=== PATIENT | male | born 1965 ===

== ENCOUNTER 2016-08-06 20:22 | Emergency (ER) | payer OTHER ==
[2016-08-06 20:49] VITALS: PULSE 66; RESP 16; TEMP 98.2; O2SAT 93
[2016-08-06 21:35] VITALS: BP 151/96
[2016-08-06] MEDS ORDERED: HYDROCOD/APAP 5/325 PREPACK#6 BTL TAKEHOME ONE (21:35)
[2016-08-06] MEDS ORDERED: IBUPROFEN 200 MG TAB PO ONE (21:38)
--- NOTE | 2016-08-06 21:40 | UCPHY ---
H & P Time Seen by Provider: 08/06/16 21:23 Patient Type: Established HPI/ROS: Patient has left foot pain to the ball of the foot. He explains he noticed this after lifting weights 4 days ago including doing squats with a lot of pressure to the area. He noted just mild discomfort after the workout then the day after the workout he had moderate pain to the plantar aspect 1st metatarsal head-left foot that persists and is described as 5/10 [address] he walks. He reports some difficulty sleeping last night due to the pain. He tried Aleve with mild improvement and notes no other exacerbating factors. ROS: No prior episodes of pain in this area. He has no other trauma recently. No numbness or tingling. No other extremity complaints. 5 point ROS is otherwise negative. Past Medical/Surgical History: GERD and hypercholesterolemia Smoking Status: Former smoker Physical Exam: Physical Exam Vital signs are normal except for hypertension General: No acute distress HEENT: Atraumatic. Eyes: Pupils equal and react to light. Extraocular motions are intact. Lungs: No respiratory distress. Cardiac: Brisk capillary refill is intact throughout. Pulses are 2+ and symmetric in the affected extremity. Skin: No rash or pallor. Extremities: Atraumatic normal except for left foot Left foot: Patient has tenderness and perhaps very mild swelling to the plantar aspect of the 1st metatarsal head region. He does not have swelling or tenderness at the metatarsal phalangeal joint of the greater toe. There is perhaps very mild swelling extends the dorsum of the 1st metatarsal head region again not to the metatarsophalangeal joint no other foot or ankle findings. No overlying skin erythema or skin lesions. Neuro: Alert with no sensorimotor deficits to the affected extremity. Initial differential diagnosis: Bony lesion, fracture, soft tissue infection, doubt gout or other mono arthropathy since it is not involving the joint. Constitutional: Initial Vital Signs Temperature (C) 36.8 C 08/06/16 20:46 Heart Rate 66 08/06/16 20:46 Respiratory Rate 16 08/06/16 20:46 Blood Pressure 175/106 H 08/06/16 20:46 O2 Sat (%) 93 08/06/16 20:46 O2 Delivery Mode Room Air Allergies/Adverse Reactions: No Known Allergies Allergy (Unverified 08/06/16 20:45) Home Medications: Medication Instructions Recorded Aspirin 08/06/16 Ibuprofen 08/06/16 Lipitor 10 mg (*) 08/06/16 PRILOSEC 08/06/16 MDM/Departure - MDM Diagnostics: Foot x-ray: Bipartite accessory ossicle-plantar aspect of the 1st metatarsal head per radiologist. No other bony abnormalities. I also reviewed this x-ray Medications Given: Discontinued Medications Hydrocodone Bitart/Acetaminophen (Mingo 5/325mg Prepack#6) 1 btl TAKEHOME EDNOW ONE Stop: 08/06/16 21:36 Last Admin: 08/06/16 21:39 Dose: 1 btl Ibuprofen (Motrin) 600 mg PO EDNOW ONE Stop: 08/06/16 21:39 Last Admin: 08/06/16 21:49 Dose: 600 mg ED Course/Re-evaluation: Discussion: Patient has swelling and tenderness at the site of the bipartite auscultable anterior aspect of his left foot this may have been irritated from the heavy weightlifting/squats. I counseled regarding this. We placed in a postop shoe. Will plan on analgesics ice ibuprofen and follow up with Podiatry for further evaluation. - Depart Disposition: Home, Routine, Self-Care Clinical Impression: Foot pain, left Condition: Good Instructions: Hydrocodone/Acetaminophen (By mouth), Arthralgia (ED) Additional Instructions: Diagnoses: 1. Foot pain 2. Bipartite sesamoid bone Plan: Postop shoe while up and about until symptoms improve Cane or crutches to take weight off the affected foot until symptoms resolve Ice 20 minutes at a time 3 times a day for the next few days Ibuprofen 600 mg per 6 hours or Naprosyn 2 tabs 2 times a day as an anti- inflammatory until symptoms improve Tylenol or Vicodin in addition if needed. No driving, alcohol or come Vicodin Consider a stool softener while on Vicodin prevent constipation. 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 Return here to the emergency department for any significant worsening despite the treatment plan Referrals: Alisa Hay [Doctor of Podiatric Medicine] - As per Instructions - PQRS PQRS Measurement: NA
== END 2016-08-06 21:50 | disposition home or self-care (01) ==
LOC: CED 20:22
DX: M79.672 Pain in left foot (principal); M89.8X8 Other specified disorders of bone, other site
CPT/HCPCS: 73630-PO; 99214-PO; G0463-PO

== ENCOUNTER → 2016-09-26 | Outpatient (CLI) | payer OTHER ==
[~2016-09-26] MED LIST: IOPAMIDOL (ISOVUE-300) 100 ML BTL ONE
== END ==
LOC: FIMAGING 12:22
PROVIDERS: ATTEND Family Medicine
DX: K11.5 Sialolithiasis (principal)
CPT/HCPCS: Q9967